=== PATIENT | male | born 1955 | race Caucasian/White ===

== ENCOUNTER 2018-06-28 07:29 | Emergency (ER) | payer BC ==
[2018-06-28 07:39] VITALS: BP 128/84
[2018-06-28] MEDS ORDERED: HYDROcodone/ACETAMIN 5-325 MG* 1 TAB PO ONE (08:26)
--- NOTE | 2018-06-28 08:34 | UC ---
Ear Complaint HPI - HPI Summary HPI Summary: c/o bilateral ear pain for the past few days after swimming. Went to another for ciprodex drops which he states do not enter ear canal and stay pooled in his outer ear. States he went to [facility] again and requsted a zpack and he is in day 2 of it. Denies chills, fever but has tried ibuprofen and tylenol to control pain to no avail - History of Current Complaint Chief Complaint: UCEar Stated Complaint: EAR PAIN Time Seen by Provider: 06/28/18 08:08 Hx Obtained From: Patient Onset/Duration: Sudden Onset, Lasting Days Severity Initially: Mild Severity Currently: Severe Pain Intensity: 9 - Allergies/Home Medications Allergies/Adverse Reactions: Allergies Allergy/AdvReac Type Severity Reaction Status Date / Time No Known Allergies Allergy Verified 06/28/18 07:39 Home Medications: Home Medications Azithromycin TAB* [Zithromax TAB (Z-NHAN) 250 mg #6 tabs] 250 mg PO DAILY [History Confirmed 06/28/18] Ciproflox/Dexameth OTIC.SUSP* [Ciprodex Otic*] 1 drop .SEE ORDER 06/28/18 [ History] PMH/Surg Hx/FS Hx/Imm Hx Previously Healthy: Yes Endocrine History: Hypothyroidism GI/ History: Kidney Stones - Surgical History Surgical History: Yes Surgery Procedure, Year, and Place: KIDNEY STONES, [facility]. NECK SURGERY C6, C7, [facility]. [facility]ENDECTOMY, [facility] - Family History Known Family History: Positive: None - Social History Alcohol Use: Occasionally Substance Use Type: None Smoking Status (MU): Never Smoked Tobacco Review of Systems Constitutional: Negative ENT: Ear Ache All Other Systems Reviewed And Are Negative: Yes Physical Exam Triage Information Reviewed: Yes Appearance: Pain Distress, Obese Vital Signs: Initial Vital Signs Temp 97.6 F 06/28/18 07:35 Pulse 75 06/28/18 07:35 Resp 18 06/28/18 07:35 BP 128/84 06/28/18 07:35 Pulse Ox 99 06/28/18 07:35 Vital Signs Reviewed: Yes Eyes: Positive: Conjunctiva Clear ENT: Positive: Hearing grossly normal, Pharynx normal, Other - edema and erythema on external ear canal b/l, no discharge, TM are not visible Neck: Positive: Supple, Nontender, No Lymphadenopathy Respiratory: Positive: Chest non-tender, Lungs clear, Normal breath sounds, No respiratory distress Cardiovascular: Positive: RRR, No Murmur, Pulses Normal, Brisk Capillary Refill Ear Complaint Course/Dx - Course Course Of Treatment: Wic inserted on both ears, ciprodex instilled in them, patient tolerated procedure well, states he is in extreme pain, one tablet of [place] was dispensed. F/u with PCP - Differential Dx/Diagnosis Provider Diagnoses: acute bilateral otitis externa Discharge - Sign-Out/Discharge Documenting (check all that apply): Patient Departure - Discharge Plan Condition: Good Disposition: HOME Prescriptions: Ciproflox/Dexameth OTIC.SUSP* [Ciprodex OTIC.SUSP*] 1 drop .SEE ORDER BID 7 Days #1 btl Patient Education Materials: Hydrocodone/Acetaminophen (By mouth), Ciprofloxacin/Dexamethasone (Into the ear), Otitis Externa (ED) Referrals: Carlos Bowie MD [Primary Care Provider] - - Billing Disposition and Condition Condition: GOOD Disposition: Home
== END 2018-06-28 08:40 | disposition home or self-care (01) ==
LOC: UCEAST 07:29
DX: H60.503 Unspecified acute noninfective otitis externa, bilateral (principal)
CPT/HCPCS: 99212; G0463

== ENCOUNTER 2019-05-24 11:16 | Emergency (ER) | payer BC ==
[2019-05-24 11:44] LABS: ABS Eosinophils 0.1 10^3/ul (0-0.6); ABS Lymphocytes 0.4 10^3/ul (1.0-4.8); ABS Monocytes 0.7 10^3/ul (0-0.8); ABS Neutrophils 11.9 10^3/ul (1.5-7.7); Eosinophil % 0.5 %; Hematocrit 46 % (42-52); Hemoglobin 14.9 g/dL (14.0-18.0); Mean Corpuscular HGB Conc 33 g/dL (31-36); Mean Corpuscular Hemoglobin 27 pg (27-31); Mean Corpuscular Volume 83 fL (80-94); Mean Platelet Volume 8.1 fL (7.4-10.4); Platelet Count 222 10^3/uL (150-450); Red Blood Count 5.52 10^6 /uL (4.18-5.48); Red Cell Distribution Width 15 % (10-15); White Blood Count 13.1 10^3/uL (3.5-10.8)
[2019-05-24 11:50] LABS: INR 0.97 (0.82-1.09)
[2019-05-24] MEDS ORDERED: Ondansetron INJ* 2 MG/ML VIAL IV ONE (11:53)
[2019-05-24 12:02] LABS: Albumin 3.9 g/dL (3.2-5.2); Albumin/Globulin Ratio 1.4 (1-3); BUN/Creatinine Ratio 18.7 (8-20); Calcium 8.9 mg/dL (8.6-10.3); EGFR African American 102.5 (>60); EGFR Non-African American 84.7 (>60); Globulin 2.8 g/dL (2-4); Magnesium 1.5 mg/dL (1.9-2.7); Potassium 4.5 mmol/L (3.5-5.0); Total Bilirubin 0.5 mg/dL (0.2-1.0); Total Protein 6.7 g/dL (6.4-8.9)
[2019-05-24] MEDS ORDERED: Ibuprofen TAB* 600 MG PO ONE (12:57)
[2019-05-24 13:23] LABS: TSH (Thyroid Stimulating Horm) 8.86 mcIU/mL (0.34-5.60)
[2019-05-24] MEDS ORDERED: Ondansetron ODT TAB* 4 MG SL ONE (13:23)
[2019-05-24 14:03] VITALS: BP 132/75
--- NOTE | 2019-05-24 16:29 | ED ---
Nausea/Vomiting/Diarrhea HPI - HPI Summary HPI Summary: Patient is an otherwise healthy 63-year-old male with a history of hypothyroidism presenting to the ED with sxs of diaphoresis, chest tightness, feeling of cold hands and feet, SOB and feeling of near syncope following four bowel movements this morning. He was seen at [facility] urgent care and was sent here by ambulance due to his symptoms. He was given nitroglycerin for sxs of chest tightness. This did not improve his sxs. He was recently dx 3 weeks ago with diverticulitis and kidney stone. He was put on antibiotics at that time, however has been off of this for a while. He has had normal bowel movements since that time until this morning when he had 4 loose stools over the course of 2 hours. He states he had a flush of diaphoresis and lightheadedness following the 4 episodes of diarrhea. - History of Current Complaint Chief Complaint: EDChestPainROMI Stated Complaint: CHEST PAIN PER DAUGHTER Time Seen by Provider: 05/24/19 11:24 Hx Obtained From: Patient Onset/Duration: Sudden Onset Timing: Constant Severity Initially: Moderate Severity Currently: Moderate Pain Intensity: 4 Pain Scale Used: 0-10 Numeric Aggravating Factor(s): Nothing Alleviating Factor(s): Nothing Diarrhea Presence: Yes Diarrhea Frequency: Every 1-2 hours Diarrhea Duration: 0-12 hours - Risk Factors Influenza Risk Factors: Negative Surgical Obstruction Risk Factor(s): Negative - Allergies/Home Medications Allergies/Adverse Reactions: Allergies Allergy/AdvReac Type Severity Reaction Status Date / Time No Known Allergies Allergy Verified 06/28/18 07:39 Home Medications: Home Medications Allopurinol TAB* [Zyloprim 300 MG TAB*] 300 mg PO DAILY 05/24/19 [History Confirmed 05/24/19] Levothyroxine TAB* [Synthroid TAB*] 125 mcg PO DAILY 05/24/19 [History Confirmed 05/24/19] PMH/Surg Hx/FS Hx/Imm Hx Previously Healthy: Yes Endocrine/Hematology History: Reports: Hx Thyroid Disease - HYPER Denies: Hx Diabetes Cardiovascular History: Denies: Hx Hypertension Respiratory History: Reports: Hx Sleep Apnea History: Reports: Hx Kidney Stones - ON BOTH KIDNEYS Denies: Hx Dialysis, Hx Renal Disease Sensory History: Denies: Hx Contacts or Glasses, Hx Hearing Aid Opthamlomology History: Denies: Hx Contacts or Glasses - Surgical History Surgery Procedure, Year, and Place: KIDNEY STONES, [facility]. NECK SURGERY C6, C7, [facility]. APPENDECTOMY, [facility] Hx Anesthesia Reactions: No - Immunization History Hx Pertussis Vaccination: No Immunizations Up to Date: Yes Infectious Disease History: No Infectious Disease History: Reports: Hx Hepatitis - HEPATITIS C Denies: Traveled Outside the [place] in Last 30 Days - Family History Known Family History: Positive: None - Social History Alcohol Use: Occasionally Substance Use Type: Reports: None Smoking Status (MU): Never Smoked Tobacco Review of Systems Constitutional: Negative Negative: Fever, Chills, Fatigue, Skin Diaphoresis Positive: Chest Pain - chest tightness. Negative: Palpitations Negative: Shortness Of Breath, Cough Positive: Diarrhea Genitourinary: Negative Positive: no symptoms reported, see HPI Negative: Arthralgia, Myalgia Positive: Weakness All Other Systems Reviewed And Are Negative: Yes Physical Exam Triage Information Reviewed: Yes Vital Signs On Initial Exam: Initial Vitals Temp Pulse Resp BP Pulse Ox 98.3 F 86 20 110/75 94 05/24/19 11:19 05/24/19 11:19 05/24/19 11:19 05/24/19 11:19 05/24/19 11:19 Vital Signs Reviewed: Yes Appearance: Positive: Well-Appearing, Well-Nourished Skin: Positive: Warm, Skin Color Reflects Adequate Perfusion Head/Face: Positive: Normal Head/Face Inspection Eyes: Positive: EOMI, OC, Conjunctiva Clear Neck: Positive: Supple, No Lymphadenopathy Respiratory/Lung Sounds: Positive: Clear to Auscultation, Breath Sounds Present Cardiovascular: Positive: RRR, Pulses are Symmetrical in both Upper and Lower Extremities Abdomen Description: Positive: Soft Bowel Sounds: Positive: Present Musculoskeletal: Positive: Strength/ROM Intact Neurological: Positive: Speech Normal Psychiatric: Positive: Normal, Affect/Mood Appropriate AVPU Assessment: Alert Diagnostics - Vital Signs Vital Signs Temp Pulse Resp BP Pulse Ox 05/24/19 14:02 98 F 92 20 132/75 96 05/24/19 13:28 93 131/82 05/24/19 13:27 98 131/82 95 05/24/19 13:26 92 131/89 95 05/24/19 13:24 90 134/81 97 05/24/19 13:00 85 19 96 05/24/19 12:55 86 18 132/75 96 05/24/19 12:25 92 24 145/83 93 05/24/19 12:00 83 21 94 05/24/19 11:54 87 18 139/84 94 05/24/19 11:29 86 05/24/19 11:28 94 05/24/19 11:26 86 22 94 05/24/19 11:25 84 12 110/75 95 05/24/19 11:19 98.3 F 86 20 110/75 94 - Laboratory Lab Results: Lab Results 05/24/19 05/24/19 05/24/19 Range/Units 11:35 11:35 11:36 WBC 13.1 H (3.5-10.8) 10^3/uL RBC 5.52 H (4.18-5.48) 10^6 /uL Hgb 14.9 (14.0-18.0) g/dL Hct 46 (42-52) % MCV 83 (80-94) fL MCH 27 (27-31) pg MCHC 33 (31-36) g/dL RDW 15 (10-15) % Plt Count 222 (150-450) 10^3/uL MPV 8.1 (7.4-10.4) fL Neut % (Auto) 90.8 % Lymph % (Auto) 3.0 % [place] % (Auto) 5.3 % Eos % (Auto) 0.5 % Baso % (Auto) 0.4 % Absolute Neuts (auto) 11.9 H (1.5-7.7) 10^3/ul Absolute Lymphs (auto) 0.4 L (1.0-4.8) 10^3/ul Absolute Monos (auto) 0.7 (0-0.8) 10^3/ul Absolute Eos (auto) 0.1 (0-0.6) 10^3/ul Absolute Basos (auto) 0.0 (0-0.2) 10^3/ul Absolute Nucleated RBC 0.0 10^3/ul Nucleated RBC % 0.0 INR (Anticoag Therapy) 0.97 (0.82-1.09) Sodium 137 (135-145) mmol/L Potassium 4.5 (3.5-5.0) mmol/L Chloride 106 (101-111) mmol/L Carbon Dioxide 25 (22-32) mmol/L Anion Gap 6 (2-11) mmol/L BUN 17 (6-24) mg/dL Creatinine 0.91 (0.67-1.17) mg/dL Est GFR ( Amer) 102.5 (>60) Est GFR (Non-Af Amer) 84.7 (>60) BUN/Creatinine Ratio 18.7 (8-20) Glucose 121 H (70-100) mg/dL Lactic Acid (0.5-2.0) mmol/L Calcium 8.9 (8.6-10.3) mg/dL Magnesium 1.5 L (1.9-2.7) mg/dL Total Bilirubin 0.50 (0.2-1.0) mg/dL AST 16 (13-39) U/L ALT 19 (7-52) U/L Alkaline Phosphatase 51 (34-104) U/L Total Creatine Kinase 51 (10-223) U/L Troponin I 0.00 (<0.04) ng/mL Total Protein 6.7 (6.4-8.9) g/dL Albumin 3.9 (3.2-5.2) g/dL Globulin 2.8 (2-4) g/dL Albumin/Globulin Ratio 1.4 (1-3) TSH 8.86 H (0.34-5.60) mcIU/mL 05/24/19 Range/Units 11:36 WBC (3.5-10.8) 10^3/uL RBC (4.18-5.48) 10^6 /uL Hgb (14.0-18.0) g/dL Hct (42-52) % MCV (80-94) fL MCH (27-31) pg MCHC (31-36) g/dL RDW (10-15) % Plt Count (150-450) 10^3/uL MPV (7.4-10.4) fL Neut % (Auto) % Lymph % (Auto) % [place] % (Auto) % Eos % (Auto) % Baso % (Auto) % Absolute Neuts (auto) (1.5-7.7) 10^3/ul Absolute Lymphs (auto) (1.0-4.8) 10^3/ul Absolute Monos (auto) (0-0.8) 10^3/ul Absolute Eos (auto) (0-0.6) 10^3/ul Absolute Basos (auto) (0-0.2) 10^3/ul Absolute Nucleated RBC 10^3/ul Nucleated RBC % INR (Anticoag Therapy) (0.82-1.09) Sodium (135-145) mmol/L Potassium (3.5-5.0) mmol/L Chloride (101-111) mmol/L Carbon Dioxide (22-32) mmol/L Anion Gap (2-11) mmol/L BUN (6-24) mg/dL Creatinine (0.67-1.17) mg/dL Est GFR ( Amer) (>60) Est GFR (Non-Af Amer) (>60) BUN/Creatinine Ratio (8-20) Glucose (70-100) mg/dL Lactic Acid 1.0 (0.5-2.0) mmol/L Calcium (8.6-10.3) mg/dL Magnesium (1.9-2.7) mg/dL Total Bilirubin (0.2-1.0) mg/dL AST (13-39) U/L ALT (7-52) U/L Alkaline Phosphatase (34-104) U/L Total Creatine Kinase (10-223) U/L Troponin I (<0.04) ng/mL Total Protein (6.4-8.9) g/dL Albumin (3.2-5.2) g/dL Globulin (2-4) g/dL Albumin/Globulin Ratio (1-3) TSH (0.34-5.60) mcIU/mL Result Diagrams: 05/24/19 11:35 05/24/19 11:36 Lab Statement: Any lab studies that have been ordered have been reviewed, and results considered in the medical decision making process. Re-Evaluation - Re-Evaluation 1 Change: Improved - improved after 1L fluids 2 Change: Improved - patient continues to feel weak, however states would like to be DC'd home d/t improvement Third Eval Change: Improved - continues to deny chest pain or diarrhea at this time 4 Change: Unchanged - orthostatics WNL Naus/Vom/Diarrhea Course/Dx - Course Course Of Treatment: Patient is an otherwise healthy 63-year-old male with a history of hypothyroidism presenting to the ED with sxs of diaphoresis, chest tightness, feeling of cold hands and feet, SOB and feeling of near syncope following four bowel movements this morning. [facility] and was sent here by ambulance due to his symptoms. He was given nitroglycerin for sxs of chest tightness. This did not improve his sxs. He was recently dx 3 weeks ago with diverticulitis and kidney stone. He was put on antibiotics at that time, however has been off of this for a while. He has had normal bowel movements since that time until this morning when he had 4 loose stools over the course of 2 hours. He states he had a flush of diaphoresis and lightheadedness following the 4 episodes of diarrhea. He continues to feel somewhat nauseous, but is denying any other symptoms currently. He has never had anything like this before. Symptoms were not aggravated or alleviated with medications or positioning. EKG obtained which was normal sinus rhythm with a rate of 84. Labs obtained which shows: WBC at 13 ,000 and elevated TSH. Patient is given nitro and aspirin prior to arrival which did not alleviate his symptoms. While here, he is asymptomatic of chest tightness or pain, but states he is lightheaded. He is given 1 L fluids which improved his symptoms. He continues to remain fatigued and weak. After further evaluation, patient states he is okay for discharge home. Discussed with family and patient at length this was possibly a near syncopal episode or a vasovagal episode from his multiple episodes of diarrhea. He is currently not having any more diarrhea and is currently not on antibiotics concerned for C. difficile. He is likely week also from the diarrhea. Orthostatics obtained which are all WNL. He is given juice and crackers in the ED, which also improved his symptoms. Patients family and patient states they are okay for discharge at this time and will return if he develops any worsening or changing symptoms. Chest x-ray obtained which shows no acute findings. - Differential Dx/Diagnosis Provider Diagnosis: Vasovagal episode, Diarrhea Condition At Discharge: Stable Discharge - Sign-Out/Discharge Documenting (check all that apply): Patient Departure Patient Received Moderate/Deep Sedation with Procedure: No - Discharge Plan Condition: Stable Disposition: HOME Patient Education Materials: Syncope (ED) Referrals: Carlos Bowie MD [Primary Care Provider] - Additional Instructions: While you are not diagnosed with having syncope, your symptoms are closely related to prescynope often caused by a vasovagal reaction (which can be with or without syncope) Symptoms The classic prodromal symptoms associated with imminent syncope and presyncope, particularly in the case of the vasovagal form of reflex syncope aka VASOVAGAL EPISODE include: Lightheadedness A feeling of being warm or cold Sweating Palpitations Nausea or non-specific abdominal discomfort Visual "blurring" occasionally proceeding to temporary darkening or "white-out" of vision Diminution of hearing and/or occurrence of unusual sounds (particularly a "whooshing" noise) Pallor reported by onlookers Fatigue after recovery A sudden drop in heart rate and blood pressure may lead to fainting, often in reaction to a stressful trigger or when there is a reaction in the body that will trigger the vagus nerve. Often when having a bowel movement, this will trigger the vagus nerve - causing a vasooagal reaction, with or without passing out or "syncope" Drink plenty of fluids in the next few days If you have continuing symptoms - or symptoms recur - lay flat, close your eyes , get something to drink like orange juice and await until symptoms resolve - Billing Disposition and Condition Condition: STABLE Disposition: Home
== END 2019-05-24 14:02 | disposition home or self-care (01) ==
LOC: ED 11:16
DX: R55 Syncope and collapse (principal); R07.9 Chest pain, unspecified; E05.90 Thyrotoxicosis, unspecified without thyrotoxic crisis or storm; Z87.442 Personal history of urinary calculi; G47.30 Sleep apnea, unspecified; R19.7 Diarrhea, unspecified
CPT/HCPCS: 36415; 71045; 80053; 82550; 83605; 83735; 84443; 84484; 85025; 85610; 93005; 96374; 99284; A9270-GY; J2405

== ENCOUNTER 2019-08-17 13:28 | Emergency (ER) | payer BC ==
[2019-08-17 13:50] VITALS: BP 138/91
--- NOTE | 2019-08-17 13:59 | UC ---
Respiratory Complaint HPI - HPI Summary HPI Summary: 64 yo male with progressively worsening cough x 2 weeks initially primarily sinus/post nasal drip now productive cough/wheezing and chest tightness - History of Current Complaint Chief Complaint: UCGeneralIllness Stated Complaint: COUGH Time Seen by Provider: 08/17/19 13:53 Hx Obtained From: Patient Onset/Duration: Gradual Onset, Lasting Weeks Timing: Constant Severity Initially: Mild Severity Currently: Moderate Pain Intensity: 3 Pain Scale Used: 0-10 Numeric Character: Cough: Productive, Sputum Description: - green Alleviating Factors: Nothing Associated Signs And Symptoms: Positive: Chills, Wheezing, Nasal Congestion, Sinus Discomfort - Allergies/Home Medications Allergies/Adverse Reactions: Allergies Allergy/AdvReac Type Severity Reaction Status Date / Time No Known Allergies Allergy Verified 08/17/19 13:40 PMH/Surg Hx/FS Hx/Imm Hx Previously Healthy: Yes Endocrine History: Hypothyroidism - Surgical History Surgical History: Yes Surgery Procedure, Year, and Place: KIDNEY STONES, [facility]. NECK SURGERY C6, C7, [facility]. [facility]ENDECTOMY, [facility] - Family History Known Family History: Positive: Hypertension Negative: Diabetes - Social History Alcohol Use: Occasionally Substance Use Type: None Smoking Status (MU): Never Smoked Tobacco Review of Systems All Other Systems Reviewed And Are Negative: Yes Constitutional: Positive: Chills Skin: Positive: Negative Eyes: Positive: Negative ENT: Positive: Nasal Discharge, Sinus Congestion, Sinus Pain/Tenderness Respiratory: Positive: Cough, Other - wheezing Cardiovascular: Positive: Negative Gastrointestinal: Positive: Negative Genitourinary: Positive: Negative Motor: Positive: Negative Neurovascular: Positive: Negative Musculoskeletal: Positive: Negative Neurological: Positive: Negative Psychological: Positive: Negative Physical Exam Triage Information Reviewed: Yes Appearance: Well-Appearing, No Pain Distress, Well-Nourished Vital Signs: Initial Vital Signs Temp 98.1 F 08/17/19 13:42 Pulse 93 08/17/19 13:42 Resp 20 08/17/19 13:42 BP 138/91 08/17/19 13:42 Pulse Ox 97 08/17/19 13:42 Vital Signs Reviewed: Yes Eyes: Positive: Conjunctiva Clear ENT: Positive: Hearing grossly normal, Pharyngeal erythema, Nasal congestion, TMs normal, Hoarse voice, Uvula midline. Negative: Nasal drainage, Tonsillar swelling, Tonsillar exudate, Trismus, Muffled voice, Sinus tenderness Neck: Positive: Supple, Nontender, No Lymphadenopathy Respiratory: Positive: Lungs clear, Normal breath sounds, No respiratory distress, Wheezing - with forced expiration Cardiovascular: Positive: RRR, No Murmur Musculoskeletal: Positive: ROM Intact, No Edema Neurological: Positive: Alert Psychological Exam: Normal Skin Exam: Normal Diagnostics - Radiology No standard instances Radiology Interpretation Completed By: Radiologist Summary of Radiographic Findings: CXR-NAD Respiratory Course/Dx - Differential Dx/Diagnosis Provider Diagnosis: Acute bronchitis Discharge ED - Sign-Out/Discharge Documenting (check all that apply): Patient Departure All imaging exams completed and their final reports reviewed: Yes - Discharge Plan Condition: Stable Disposition: HOME Prescriptions: Amoxicillin PO (*) [Amoxicillin 875 MG (*)] 875 mg PO BID #14 tab predniSONE [Deltasone 20 MG TAB] 40 mg PO DAILY #10 tab Patient Education Materials: Acute Bronchitis (ED), How to Use a Metered-Dose Inhaler and a Spacer (ED) Referrals: Tran Vitale NP [Primary Care Provider] - 1 Week (if not completely better) Additional Instructions: recheck for new or worsening symptoms BP a littler higher than we like to see needs follow up - Billing Disposition and Condition Condition: STABLE Disposition: Home
[2019-08-17] MEDS ORDERED: predniSONE TAB* 20 MG PO ONE (14:30)
[2019-08-17] MEDS ORDERED: Albuterol HFA INHALER* 8 gm MDI INH ONE (14:30)
== END 2019-08-17 15:02 | disposition home or self-care (01) ==
LOC: UCEAST 13:28
DX: J20.9 Acute bronchitis, unspecified (principal); E03.9 Hypothyroidism, unspecified
CPT/HCPCS: 71046; 99213; A9270-GY; G0463; J7512

== ENCOUNTER 2019-08-24 14:55 | Emergency (ER) | payer BC ==
[2019-08-24 15:28] VITALS: BP 150/99
--- NOTE | 2019-08-24 15:48 | UC ---
Respiratory Complaint HPI - HPI Summary HPI Summary: 3 WEEKS OF COUGH, CHEST CONGESTION, FATIGUE. NO FEVER, N/V. SEEN HERE 1 WEEK AGO. CXR UNREMARKABLE. TX WITH AMOX, PREDNISONE AND ALBUTEROL. FEELS NO BETTER. - History of Current Complaint Stated Complaint: COUGH Time Seen by Provider: 08/24/19 15:05 Hx Obtained From: Patient Onset/Duration: Gradual Onset, Lasting Weeks, Still Present Timing: Constant Severity Initially: Moderate Severity Currently: Moderate Pain Intensity: 0 Pain Scale Used: 0-10 Numeric Character: Cough: Productive Aggravating Factors: Nothing Alleviating Factors: Nothing Associated Signs And Symptoms: Positive: Wheezing, URI, Nasal Congestion. Negative: Dyspnea, Fever, Chills, Pleuritic Chest Pain - Allergies/Home Medications Allergies/Adverse Reactions: Allergies Allergy/AdvReac Type Severity Reaction Status Date / Time No Known Allergies Allergy Verified 08/24/19 15:28 PMH/Surg Hx/FS Hx/Imm Hx Endocrine History: Hypothyroidism GI/ History: Kidney Stones Other History Of: Hepatitis C - Surgical History Surgical History: Yes Surgery Procedure, Year, and Place: KIDNEY STONES, [facility]. NECK SURGERY C6, C7, [facility]. [facility]ENDECTOMY, [facility] - Family History Known Family History: Positive: Hypertension Negative: Diabetes - Social History Alcohol Use: Occasionally Substance Use Type: None Smoking Status (MU): Never Smoked Tobacco Review of Systems All Other Systems Reviewed And Are Negative: Yes Constitutional: Positive: Fatigue ENT: Positive: Nasal Discharge Respiratory: Positive: Cough Cardiovascular: Positive: Negative Gastrointestinal: Positive: Negative Physical Exam Triage Information Reviewed: Yes Appearance: Well-Appearing, No Pain Distress, Well-Nourished Vital Signs: Initial Vital Signs Temp 97.4 F 08/24/19 15:23 Pulse 64 08/24/19 15:23 Resp 20 08/24/19 15:23 BP 150/99 08/24/19 15:23 Pulse Ox 96 08/24/19 15:23 Vital Signs Reviewed: Yes Eyes: Positive: Conjunctiva Clear ENT: Positive: Hearing grossly normal, Pharynx normal, TMs normal Neck: Positive: Supple, Nontender, No Lymphadenopathy Respiratory Exam: Normal Cardiovascular Exam: Normal Abdomen Description: Positive: Soft Musculoskeletal: Positive: No Edema Neurological: Positive: Alert Psychological: Positive: Age Appropriate Behavior Skin: Negative: Rashes Respiratory Course/Dx - Course Course Of Treatment: NO IMPROVEMENT WITH AMOXICILLIN. STATES HE MAY HAVE HAD TRANSIENT IMPROVEMENT WITH PREDNISONE AND ALBUTEROL BUT THAT OVERALL HE IS NO BETTER. STATES THAT AZITHROMYCIN USUALLY WORKS WELL FOR HIM SO WILL TRY A 5 DAY COURSE. WILL GIVE ANOTHER SHORT BURST OF STEROIDS. CONTINUE ALBUTEROL PRESCRIBED. COUNSELED PATIENT THAT IF HE FAILS THIS COURSE OF ANTIBIOTICS THAT HIS SYMPTOMS ARE MORE LIKELY VIRALLY OR ALLERGICALLY MEDIATED AND HE SHOULD FOLLOW-UP WITH HIS PCP. IF HE DEVELOPS FEVER, SHORTNESS OF BREATH OR ANY OTHER CONCERNING SYMPTOMS HE MAY BENEFIT FROM A REPEAT CHEST X-RAY. - Differential Dx/Diagnosis Provider Diagnosis: Acute bronchitis Discharge ED - Sign-Out/Discharge Documenting (check all that apply): Patient Departure All imaging exams completed and their final reports reviewed: No Studies - Discharge Plan Condition: Stable Disposition: HOME Prescriptions: Azithromycin 500 mg PO DAILY #5 tab predniSONE TAB* [Deltasone TAB*] 50 mg PO DAILY #5 tab Patient Education Materials: Acute Bronchitis (ED) Referrals: Tran Vitale NP [Primary Care Provider] - If Needed Additional Instructions: YOUR SYMPTOMS MAY BE VIRALLY MEDIATED BUT GIVEN THE LENGTH OF TIME YOU HAVE BEEN ILL WE WILL COVER YOU WITH ANTIBIOTICS. TAKE IT FOR THE FULL COURSE. REST, HYDRATE, OTC MEDS NEEDED. WILL ALSO TREAT WITH PREDNISONE TO HELP WITH AIRWAY INFLAMMATION. THIS IS THE SECOND ROUND OF ANTIBIOTICS YOU HAVE HAD FOR THIS ILLNESS. IF YOU DO NOT IMPROVE WITH THIS COURSE YOUR SYMPTOMS ARE MORE LIKELY TO BE VIRALLY MEDIATED AND SIMPLY NEED MORE TIME TO RESOLVE. SEEK FOLLOW-UP WITH YOUR PCP IF YOU ARE NOT IMPROVING OVER THE NEXT 1-2 WEEKS. - Billing Disposition and Condition Condition: STABLE Disposition: Home
== END 2019-08-24 16:10 | disposition home or self-care (01) ==
LOC: UCEAST 14:55
DX: J20.9 Acute bronchitis, unspecified (principal); R53.83 Other fatigue
CPT/HCPCS: 99212; G0463

== ENCOUNTER 2019-12-02 09:39 | Emergency (ER) | payer BC ==
[2019-12-02 09:56] VITALS: BP 138/89
--- NOTE | 2019-12-02 10:04 | UC ---
Throat Pain/Nasal Byron HPI - HPI Summary HPI Summary: 64 yo male presents with cough. He tells me that over the last 3 days he has had worsening cough, wheezing, and chest congestion. He has not been taking anything OTC for his symptoms. He has some sinus congestion and post nasal drip. Denies sore throat, SOB, chest pain, abdominal pain, n/v. He does not smoke. He is concerned because his is having surgery today and he does not want to get her sick - History of Current Complaint Chief Complaint: UCRespiratory Stated Complaint: COUGH CHEST CONGESTION Time Seen by Provider: 12/02/19 10:04 Hx Obtained From: Patient Onset/Duration: Gradual Onset Severity: Mild Pain Intensity: 2 Pain Scale Used: 0-10 Numeric - Allergies/Home Medications Allergies/Adverse Reactions: Allergies Allergy/AdvReac Type Severity Reaction Status Date / Time No Known Allergies Allergy Verified 08/24/19 15:28 PMH/Surg Hx/FS Hx/Imm Hx - Additional Past Medical History Additional PMH: Gout Endocrine History: Hypothyroidism Other History Of: Hepatitis C - Surgical History Surgical History: Yes Surgery Procedure, Year, and Place: KIDNEY STONES, [facility]. NECK SURGERY C6, C7, [facility]. APPENDECTOMY, [facility] - Family History Known Family History: Positive: Hypertension Negative: Diabetes - Social History Occupation: Employed Full-time Lives: With Family Alcohol Use: Occasionally Substance Use Type: None Smoking Status (MU): Never Smoked Tobacco Review of Systems All Other Systems Reviewed And Are Negative: No Constitutional: Positive: Negative Skin: Positive: Negative Eyes: Positive: Negative ENT: Positive: Sinus Congestion Respiratory: Positive: Cough Cardiovascular: Positive: Negative Gastrointestinal: Positive: Negative Neurological: Positive: Negative Psychological: Positive: Negative Physical Exam - Summary Physical Exam Summary: GENERAL: NAD. WDWN. No pain distress. SKIN: No rashes, sores, lesions, or open wounds. HEENT: Head: AT/NC Eyes: EOM intact. Conjunctiva clear without inflammation or discharge. Ears: Hearing grossly normal. TMs intact, no bulging, erythema, or edema. Nose: Nasal mucosa pink and moist. NTTP maxillary and frontal sinus. Throat: Posterior oropharynx without exudates, erythema, or tonsillar enlargement. Uvula midline. NECK: Supple. Nontender. No lymphadenopathy. CHEST: Wheezing left lung. No accessory muscle use. Breathing comfortably and in no distress. CV: RRR. Pulses intact. Cap refill <2seconds NEURO: Alert. PSYCH: Age appropriate behavior. Triage Information Reviewed: Yes Vital Signs: Initial Vital Signs Temp 96.5 F 12/02/19 09:51 Pulse 74 12/02/19 09:51 Resp 20 12/02/19 09:51 BP 138/89 12/02/19 09:51 Pulse Ox 97 12/02/19 09:51 Vital Signs Reviewed: Yes Diagnostics - Radiology CXR Radiology Interpretation Completed By: Radiologist Summary of Radiographic Findings: IMPRESSION: NO EVIDENCE FOR ACTIVE CARDIOPULMONARY DISEASE. Throat Pain/Nasal Course/Dx - Course Course Of Treatment: CXR as above. Suspect bronchitis. Pt requesting anbx treatment at this time. - Differential Dx/Diagnosis Provider Diagnosis: Bronchitis Discharge ED - Sign-Out/Discharge Documenting (check all that apply): Patient Departure All imaging exams completed and their final reports reviewed: Yes - Discharge Plan Condition: Stable Disposition: HOME Prescriptions: Azithromycin TAB* [Zithromax TAB (Z-NHAN) 250 mg #6 tabs] 2 tab PO .TODAY, THEN 1 DAILY #1 nhan Patient Education Materials: Acute Bronchitis (ED) Referrals: Tran Vitale NP [Primary Care Provider] - Additional Instructions: If you develop a fever, shortness of breath, chest pain, new or worsening symptoms - please call your PCP or go to the ED immediately. Your blood pressure was high at todays visit. Please see your primary provider within 4 weeks for recheck and re-evaluation. - Billing Disposition and Condition Condition: STABLE Disposition: Home
== END 2019-12-02 10:48 | disposition home or self-care (01) ==
LOC: UCEAST 09:39
DX: J40 Bronchitis, not specified as acute or chronic (principal); M10.9 Gout, unspecified
CPT/HCPCS: 71046; 99212; G0463

== ENCOUNTER 2019-12-14 15:50 | Emergency (ER) | payer BC ==
[2019-12-14 16:12] VITALS: BP 171/90
--- NOTE | 2019-12-14 16:46 | UC ---
Respiratory Complaint HPI - HPI Summary HPI Summary: 64-year-old male comes in with a chief complaint of cough chest congestion and wheezing. Patient started on azithromycin on 02 December for bronchitis. He's had yellow and green sputum. Sputum is not is green now it's more yellow. He had fevers initially the fevers are gone. Patient still feels chest congestion and shortness of breath. He is having wheezing now. He's been fatigued and unable to work due to his illness. - History of Current Complaint Chief Complaint: UCRespiratory Stated Complaint: COUGH AND CONGESTION Time Seen by Provider: 12/14/19 16:33 Pain Intensity: 2 - Allergies/Home Medications Allergies/Adverse Reactions: Allergies Allergy/AdvReac Type Severity Reaction Status Date / Time No Known Allergies Allergy Verified 12/14/19 16:12 PMH/Surg Hx/FS Hx/Imm Hx Previously Healthy: Yes - GOUT Endocrine History: Hypothyroidism Other History Of: Hepatitis C - Surgical History Surgical History: Yes Surgery Procedure, Year, and Place: KIDNEY STONES, [facility]. NECK SURGERY C6, C7, [facility]. APPENDECTOMY, [facility] - Family History Known Family History: Positive: Hypertension Negative: Diabetes - Social History Alcohol Use: Occasionally Substance Use Type: None Smoking Status (MU): Never Smoked Tobacco Review of Systems All Other Systems Reviewed And Are Negative: Yes Constitutional: Positive: Fever, Fatigue, Other - SEE HPI Skin: Positive: Negative Eyes: Positive: Negative ENT: Positive: Nasal Discharge Respiratory: Positive: Shortness Of Breath, Cough, Other - SEE HPI Cardiovascular: Positive: Negative Gastrointestinal: Positive: Negative Motor: Positive: Negative Neurovascular: Positive: Negative Musculoskeletal: Positive: Negative Neurological: Positive: Negative Psychological: Positive: Negative Is Patient Immunocompromised?: No Physical Exam Triage Information Reviewed: Yes Appearance: No Pain Distress, Well-Nourished, Ill-Appearing - MILD Vital Signs: Initial Vital Signs Temp 97.9 F 12/14/19 16:06 Pulse 74 12/14/19 16:06 Resp 16 12/14/19 16:06 BP 171/90 12/14/19 16:06 Pulse Ox 96 12/14/19 16:06 Vital Signs Reviewed: Yes Eye Exam: Normal Eyes: Positive: Conjunctiva Clear ENT: Positive: Pharyngeal erythema, Nasal congestion, Nasal drainage, TMs normal Neck: Positive: Supple Respiratory: Positive: No respiratory distress, Rhonchi, Wheezing Cardiovascular: Positive: RRR Musculoskeletal: Positive: Strength Intact, ROM Intact Neurological: Positive: Alert, Muscle Tone Normal Psychological: Positive: Age Appropriate Behavior Skin Exam: Normal Respiratory Course/Dx - Course Course Of Treatment: Patient had normal chest x-ray when he was seen here last on December 02, 2019. Since he is not completely improved we discussed getting another chest x-ray which she declined at this time. We will treat the bronchospasm with albuterol and also prednisone. Because it appears that the infection is not completely gone will go ahead and treat with doxycycline. Follow-up primary care doctor get reevaluated sooner if worsen or not improved or any questions or concerns - Differential Dx/Diagnosis Provider Diagnosis: Bronchitis with bronchospasm Discharge ED - Sign-Out/Discharge Documenting (check all that apply): Patient Departure All imaging exams completed and their final reports reviewed: No Studies - Discharge Plan Condition: Stable Disposition: HOME Prescriptions: Albuterol HFA INHALER* [Ventolin HFA Inhaler*] 2 puff INH Q4H PRN #1 mdi PRN Reason: Wheezing DOXYcycline CAP(*) [DOXYcycline 100MG CAP(*)] 100 mg PO BID #20 cap predniSONE 20 mg TAB [Deltasone 20 MG TAB*] 40 mg PO DAILY #10 tab Patient Education Materials: Acute Bronchitis (ED), Bronchospasm (ED) Referrals: Tran Vitale NP [Primary Care Provider] - Additional Instructions: FOLLOW UP WITH YOUR DOCTOR IF NOT COMPLETELY IMPROVED. GET REEVALUATED SOONER IF NOT IMPROVED OR WORSE OR ANY QUESTIONS OR CONCERNS. - Billing Disposition and Condition Condition: STABLE Disposition: Home
== END 2019-12-14 16:56 | disposition home or self-care (01) ==
LOC: UCEAST 15:50
DX: J20.9 Acute bronchitis, unspecified (principal)
CPT/HCPCS: 99212; G0463